=== PATIENT | female | born 1955 | race Caucasian/White ===

== ENCOUNTER 2018-02-23 08:00 | Inpatient (IN) | payer OTHER ==
[2018-02-14 12:11] VITALS: BMI 34.7
[2018-03-04] MEDS ORDERED: VANCOMYCIN 1,000 MG VIAL (RESTRICTED TO ID ONLY) ONE (14:22)
[2018-03-04] MEDS ORDERED: ROPIVACAINE HCL 0.5% 30ML VIAL ONE (14:29)
[2018-03-04] MEDS ORDERED: MIDAZOLAM HCL 2 MG/2 ML SINGLE DOSE VIAL ONE (14:29)
[2018-03-04] MEDS ORDERED: DEXAMETHASONE SOD PHOSPHATE/PF 10 MG/ML SDV ONE (14:30)
[2018-03-04] MEDS ORDERED: EPINEPHrine/PF 1 MG/1 ML (1:1,000) AMPULE ONE (14:31)
[2018-03-04] MEDS ORDERED: BUPIVACAINE 0.75% IN DEXTROSE/PF 2ML AMPULE NR ONE (15:24)
[2018-03-04] MEDS ORDERED: BUPIVACAINE HCL/PF 0.5% (5MG/ML) 10 ML VIAL ONE (15:25)
[2018-03-04] MEDS ORDERED: ceFAZolin SODIUM 1 GM VIAL ONE (15:49)
[2018-03-04] MEDS ORDERED: ePHEDrine SULFATE 50 MG/1 ML AMPULE ONE (16:18)
[2018-03-04] MEDS ORDERED: PROPOFOL 20 ML ONE (16:48)
--- NOTE | 2018-03-04 17:30 | PN ---
Progress Note (short form) - Note Progress Note: 62F s/p right MODESTA POD #0. -Pain control. -DVT PPx: - Chemical: ASA 81mg PO BID x 6 weeks. - Mechanical: MACHO's, SCD's. -Incentive spirometry. -PT/OT/Rehab, OOB. -WBAT RLE. -Post-op Ancef x 2 doses. -Right hip precautions. -Hip abduction pillow. -f/u post-op trial of void. -f/u AM labs. -Care per medical hospitalist team. -Discharge planning: f/u Wednesday03/11/2018 at [facility] [place] office; call for appointment; . -Will follow. Ck Ferrer MD (Orthopaedic Surgery).
[2018-03-04] MEDS ORDERED: MAG HYDROX/AL HYDROX/SIMETH 30 ML UNIT-DOSE CUP PO PRN (17:35)
[2018-03-04] MEDS ORDERED: ONDANSETRON 4 MG/2 ML VIAL IVPUSH PRN (17:35)
[2018-03-04] MEDS ORDERED: MAGNESIUM HYDROX 2400MG/30ML ORAL SUSPENSION 30 ML CUP PO PRN (17:35)
--- NOTE | 2018-03-04 17:35 | OP ---
Operative Note - Note: Operative Date: 03/04/18 Pre-Operative Diagnosis: Right hip DJD Operation: Right total hip replacement Implants: Olman. Cup - Tritanium 50mm, cluster. Poly - 28mm, neutral. Stem - Accolade II, #2, 127 deg NSA (high offset). Head - Biolox/Delta Ceramic; 28mm diameter, -2.7mm length Post-Operative Diagnosis: Same as Pre-op Surgeon: Ck Ferrer Television Engineering Teacher: Javon Ferrer Anesthesiologist/CROWN POUNCER: Hitesh Bryant Anesthesia: Spinal Specimens Removed: Right femoral head Estimated Blood Loss (mls): 150 Fluid Volume Replaced (mls): 1,000 (Crystalloid) Operative Report Dictated: Yes
[2018-03-04] MEDS ORDERED: LACTATED RINGERS SOLUTION 1,000 ML IV SCH (17:45)
[2018-03-04] MEDS ORDERED: oxyCODONE HCL 5 MG TABLET PO PRN (17:55)
[2018-03-04] MEDS ORDERED: ACETAMINOPHEN 325 MG TABLET (FP) ONE (18:09)
[2018-03-04] MEDS ORDERED: ACETAMINOPHEN 325 MG TABLET (FP) PO ONE (18:22)
[2018-03-04] MEDS: SENNOSIDES/DOCUSATE COMBO (SENNA PLUS) TABLET (UD) PO SCH (21:52)
[2018-03-04] MEDS: oxyCODONE HCL 10 MG SUSTAINED ACTING TABLET PO SCH (21:52)
[2018-03-04] MEDS: ASPIRIN COATED 81 MG TABLET.EC PO SCH (21:53)
[2018-03-04] MEDS ORDERED: HYDROmorphone *PCA* 10MG/50ML DISP.SYRIN PCA SCH ×2 (22:30→22:45)
[2018-03-04] MEDS ORDERED: KETOROLAC TROMETHAMINE 15 MG/ML VIAL IVPUSH PRN (22:33)
[2018-03-04] MEDS ORDERED: HYDROmorphone HCL CARPU-JECT 2 MG/1 ML DISP.SYRIN SQ ONE (22:45)
[2018-03-04] MEDS: CEFAZOLIN 1 GM/D5W 1 GM/50 ML BAG IVPB SCH (22:46)
[2018-03-05] MEDS: ACETAMINOPHEN 325 MG TABLET (FP) PO SCH ×4 (00:13→18:13)
[2018-03-05] MEDS: CEFAZOLIN 1 GM/D5W 1 GM/50 ML BAG IVPB SCH (07:13)
[2018-03-05 09:54] LABS: ANION GAP 9 MMOL/L (8-16); BLOOD UREA NITROGEN 15 mg/dl (7-18); CALCIUM 9.2 mg/dl (8.4-10.2); CHLORIDE 102 mmol/L (98-107); CO2 27 mmol/L (22-28); CREATININE 0.7 mg/dl (0.6-1.3); GLUCOSE,RANDOM 163 mg/dl (74-106); POTASSIUM 4.9 mmol/L (3.5-5.1); SODIUM 138 mmol/L (136-145)
[2018-03-05 10:08] LABS: HEMOGLOBIN 11.7 GM/dl (10.7-15.3); MCH 33.3 pg (25.7-33.7); MCHC 33.4 g/dl (32.0-36.0); MEAN CELL VOLUME 99.8 fl (80-96); MEAN PLT VOLUME 9.8 fl (7.5-11.1); PLATELET COUNT 282 K/MM3 (134-434); RBC 3.51 M/mm3 (3.60-5.2)
[2018-03-05] MEDS: PANTOPRAZOLE 40 MG TABLET (FP) PO SCH (10:47)
[2018-03-05] MEDS: ASPIRIN COATED 81 MG TABLET.EC PO SCH ×2 (10:47→21:44)
[2018-03-05] MEDS: oxyCODONE HCL 10 MG SUSTAINED ACTING TABLET PO SCH ×2 (10:48→21:44)
[2018-03-05] MEDS: SENNOSIDES/DOCUSATE COMBO (SENNA PLUS) TABLET (UD) PO SCH ×2 (10:48→21:43)
--- NOTE | 2018-03-05 21:30 | CONSULT ---
Consultation: REQUESTING PROVIDER: Dr. Ck Ferrer CONSULT REQUEST: We have been asked to medically evaluate this patient for ( Medical Management). HISTORY OF PRESENT ILLNESS: This is a 62 y/o woman with a past medical history of Asthma, R- Hip DJD. Patient is s/p R- Total Hip Replacement POD #1, Dr. Ferrer, spinal anesthesia. Patient reports having soreness to surgical site, is on BAKERY WORKER CONVEYOR LINE pump. Patient reports ambulating with assistance. Patient reports eating, drinking, voiding, + flatulence, no BM. She denies parasthesias, fever, chills, cough, SOB, dizziness , CP, palpitations, AP, N/V, dysuria. REVIEW OF SYSTEMS: CONSTITUTIONAL: Absent: fever, chills, diaphoresis, generalized weakness, malaise, loss of appetite, weight change HEENT: Absent: rhinorrhea, nasal congestion, throat pain, throat swelling, difficulty swallowing, mouth swelling, ear pain, eye pain, visual changes CARDIOVASCULAR: Absent: chest pain, syncope, palpitations, irregular heart rate, lightheadedness , peripheral edema RESPIRATORY: Absent: cough, shortness of breath, dyspnea with exertion, orthopnea, wheezing, stridor, hemoptysis GASTROINTESTINAL: Absent: abdominal pain, abdominal distension, nausea, vomiting, diarrhea, constipation, melena, hematochezia GENITOURINARY: Absent: dysuria, frequency, urgency, hesitancy, hematuria, flank pain, genital pain MUSCULOSKELETAL: right hip soreness Absent: myalgia, arthralgia, joint swelling, back pain, neck pain SKIN: Absent: rash, itching, pallor HEMATOLOGIC/IMMUNOLOGIC: Absent: easy bleeding, easy bruising, lymphadenopathy, frequent infections ENDOCRINE: Absent: unexplained weight gain, unexplained weight loss, heat intolerance, cold intolerance NEUROLOGIC: Absent: headache, focal weakness or paresthesias, dizziness, unsteady gait, seizure, mental status changes, bladder or bowel incontinence PSYCHIATRIC: Absent: anxiety, depression, suicidal or homicidal ideation, hallucinations. PHYSICAL EXAMINATION Vital Signs - 24 hr 03/04/18 03/04/18 03/04/18 21:37 22:16 23:09 Temperature 97.6 F Pulse Rate 90 89 Respiratory 19 16 Rate Blood Pressure 143/57 L 121/60 O2 Sat by Pulse 100 Oximetry (%) 03/04/18 03/05/18 03/05/18 23:39 00:09 00:39 Temperature Pulse Rate 79 88 88 Respiratory 16 16 16 Rate Blood Pressure 128/69 127/62 127/62 O2 Sat by Pulse Oximetry (%) 03/05/18 03/05/18 03/05/18 01:09 03:09 05:00 Temperature 98.0 F Pulse Rate 74 88 74 Respiratory 16 19 19 Rate Blood Pressure 128/71 126/78 132/67 O2 Sat by Pulse Oximetry (%) 03/05/18 03/05/18 03/05/18 07:29 08:17 10:00 Temperature 97.7 F Pulse Rate 96 H Respiratory 18 Rate Blood Pressure 135/55 L O2 Sat by Pulse 100 100 99 Oximetry (%) 03/05/18 03/05/18 03/05/18 14:00 18:00 20:28 Temperature 97.6 F 98.2 F Pulse Rate 84 75 Respiratory 18 18 Rate Blood Pressure 135/58 L 125/56 L O2 Sat by Pulse 98 95 95 Oximetry (%) GENERAL: Awake, alert, and fully oriented, in no acute distress. HEAD: Normal with no signs of trauma. EYES: Pupils equal, round and reactive to light, extraocular movements intact, sclera anicteric, conjunctiva clear. No lid lag. EARS, NOSE, THROAT: Ears normal, nares patent, oropharynx clear without exudates. Moist mucous membranes. NECK: Normal range of motion, supple without lymphadenopathy, JVD, or masses. LUNGS: Breath sounds equal, clear to auscultation bilaterally. No wheezes, and no crackles. No accessory muscle use. HEART: Regular rate and rhythm, normal S1 and S2 without murmur, rub or gallop. ABDOMEN: Obese, soft, nontender, not distended, normoactive bowel sounds, no guarding, no rebound, no masses. No hepatomegaly or splenomegaly. MUSCULOSKELETAL: Normal range of motion at RUE, LUE, LLE joints. No bony deformities. No CVA tenderness. LROM RLE, Right hip tenderness UPPER EXTREMITIES: 2+ pulses, warm, well-perfused. No cyanosis. No clubbing. Cap refill <2 seconds. No peripheral edema. LOWER EXTREMITIES: 2+ pulses, warm, well-perfused. No calf tenderness. No peripheral edema. Surgical bandages C/D/I, surgical wound not visualized , Abductor Pillow, SCDs noted NEUROLOGICAL: Cranial nerves II-XII intact. Normal speech. Gait not observed. PSYCHIATRIC: Cooperative. Good eye contact. Appropriate mood and affect. SKIN: Warm, dry, normal turgor, no rashes or lesions noted. Laboratory Results - last 24 hr 03/05/18 03/05/18 07:50 07:50 WBC 15.0 H RBC 3.51 L Hgb 11.7 Hct 35.0 MCV 99.8 H MCH 33.3 MCHC 33.4 RDW 13.0 Plt Count 282 MPV 9.8 Sodium 138 Potassium 4.9 Chloride 102 Carbon Dioxide 27 Anion Gap 9 BUN 15 Creatinine 0.7 Creat Clearance w eGFR > 60 Random Glucose 163 H Calcium 9.2 Active Medications Generic Name Dose Route Start Last Admin Trade Name Freq PRN Reason Stop Dose Admin Acetaminophen 650 mg 03/04/18 18:00 03/05/18 18:13 Tylenol - PO 03/07/18 17:59 650 mg Q6H ERI Administration Al Hydroxide/Mg Hydroxide 30 ml 03/04/18 17:35 Mylanta Oral Suspension - PO Q4H PRN DYSPEPSIA Aspirin 81 mg 03/04/18 22:00 03/05/18 10:47 Ecotrin - PO 81 mg BID ERI Administration Hydromorphone HCl 10 mg 03/04/18 22:45 03/04/18 23:09 Dilaudid Contact Officer - BAKERY WORKER CONVEYOR LINE 10 mg BAKERY WORKER CONVEYOR LINE ERI Administration Protocol Ketorolac Tromethamine 15 mg 03/04/18 22:33 Toradol Injection - IVPUSH Q6H PRN PAIN LEVEL 6-10 Magnesium Hydroxide 30 ml 03/04/18 17:35 Milk Of Magnesia - PO PRN PRN CONSTIPATION Ondansetron HCl 4 mg 03/04/18 17:35 03/05/18 07:34 Zofran Injection IVPUSH 4 mg Q6H PRN Administration NAUSEA Oxycodone HCl 5 mg 03/04/18 17:55 03/04/18 20:58 Roxicodone - PO 5 mg Q3H PRN Administration PAIN LEVEL 1-5 Oxycodone HCl 10 mg 03/04/18 17:55 Roxicodone - PO Q3H PRN PAIN LEVEL 6-10 Oxycodone HCl 10 mg 03/04/18 22:00 03/05/18 10:48 Oxycontin - PO 03/07/18 17:58 10 mg BID ERI Administration Pantoprazole Sodium 40 mg 03/05/18 10:00 03/05/18 10:47 Protonix - PO 40 mg DAILY ERI Administration Senna/Docusate Sodium 1 tablet 03/04/18 22:00 03/05/18 10:48 Pericolace - PO 1 tablet BID ERI Administration ASSESSMENT/PLAN: 62 y/o woman with a PMH of Asthma, Right Hip DJD. Admitted for Right Total Hip Replacement. 1. Musculoskeletal: s/p Right Total Hip Replacement, POD #1 - Continue pain medication as needed - Physical Therapy as per the Ortho Team - Use Incentive Spirometer while awake - Monitor CBC, BMP, vitals 2. Pulmonary: Asthma - stable - no acute flare - Albuterol MDI prn FEN - PO fluids as tolerated - Replete lytes prn - Regular Diet DVT/GI ppx - Asa as per Orthopedist - Protonix Dispo: We will continue to follow the patient. Thank you for this consultative opportunity. Problem List - Problems (1) Status post right hip replacement Code(s): Z96.641 - PRESENCE OF RIGHT ARTIFICIAL HIP JOINT (2) Asthma Code(s): J45.909 - UNSPECIFIED ASTHMA, UNCOMPLICATED (3) DVT prophylaxis Code(s): WYW5464 - Visit type - Emergency Visit Emergency Visit: No - New Patient This patient is new to me today: Yes Date on this admission: 03/05/18 - Critical Care Critical Care patient: No
[2018-03-06] MEDS: ACETAMINOPHEN 325 MG TABLET (FP) PO SCH ×3 (00:46→11:37)
[2018-03-06] MEDS: ASPIRIN COATED 81 MG TABLET.EC PO SCH (09:07)
[2018-03-06] MEDS: PANTOPRAZOLE 40 MG TABLET (FP) PO SCH (09:07)
[2018-03-06] MEDS: SENNOSIDES/DOCUSATE COMBO (SENNA PLUS) TABLET (UD) PO SCH (09:07)
[2018-03-06] MEDS: oxyCODONE HCL 5 MG TABLET PO PRN ×2 (09:08→14:14)
[2018-03-06] MEDS: oxyCODONE HCL 10 MG SUSTAINED ACTING TABLET PO SCH (09:09)
[2018-03-06 09:39] LABS: HEMATOCRIT 33.8 % (32.4-45.2); HEMOGLOBIN 10.9 GM/dl (10.7-15.3); MCH 32.5 pg (25.7-33.7); MCHC 32.3 g/dl (32.0-36.0); MEAN CELL VOLUME 100.7 fl (80-96); MEAN PLT VOLUME 9.8 fl (7.5-11.1); PLATELET COUNT 284 K/MM3 (134-434); RBC 3.36 M/mm3 (3.60-5.2); RDW 12.8 % (11.6-15.6); WHITE BLOOD COUNT 14.6 K/mm3 (4.0-10.8)
[2018-03-06 13:00] LABS: PH,URINE 5.5 (4.5-8); URINE BILIRUBIN Negative (NEGATIVE); URINE COLOR Yellow; URINE GLUCOSE (UA) Negative (NEGATIVE); URINE KETONE Negative (NEGATIVE); URINE NITRITE Negative (NEGATIVE); URINE PROTEIN Negative (NEGATIVE); URINE UROBILINOGEN 0.2 (0.2-1.0)
[2018-03-06 13:01] LABS: URINE APPEARANCE HAZY; URINE LEUK ESTERASE 1+ (NEGATIVE)
[2018-03-06 13:03] LABS: URINE RBC 0-2 /hpf (0-3)
[2018-03-06 13:04] LABS: EPI CELLS MODERATE /HPF; URINE BACTERIA FEW /hpf (NEGATIVE)
--- NOTE | 2018-03-06 13:13 | DS ---
Physical Exam: SUBJECTIVE: Patient seen and examined. Pt reports feeling better, Rt hip pain well controlled, denies cp, sob, palpitations, abdominal pain pain N/V/D, fever , chills or urinary symptoms. OBJECTIVE: Vital Signs Period Temp Pulse Resp BP Sys/Nunes Pulse Ox Last 24 Hr 97.6 F-98.3 F 73-91 18-18 120-151/50-61 95-98 PHYSICAL EXAM GENERAL: The patient is awake, alert, and fully oriented, in no acute distress. HEAD: Normal with no signs of trauma. EYES: PERRL, extraocular movements intact, sclera anicteric, conjunctiva clear. ENT: Ears normal, nares patent, oropharynx clear without exudates, moist mucous membranes. NECK: Trachea midline, full range of motion, supple. LUNGS: Breath sounds equal, clear to auscultation bilaterally, no wheezes, no crackles, no accessory muscle use. HEART: Regular rate and rhythm, S1, S2 without murmur, rub or gallop. ABDOMEN: Soft, nontender, nondistended, normoactive bowel sounds, no guarding, no rebound, no hepatosplenomegaly, no masses. EXTREMITIES: 2+ pulses, warm, well-perfused, no edema. Rt hip dsg dry and intact NEUROLOGICAL: Cranial nerves II through XII grossly intact. Normal speech, gait not observed. PSYCH: Normal mood, normal affect. SKIN: Warm, dry, normal turgor, no rashes or lesions noted. LABS Laboratory Results - last 24 hr 03/06/18 03/06/18 07:00 12:37 WBC 14.6 H RBC 3.36 L Hgb 10.9 Hct 33.8 MCV 100.7 H MCH 32.5 MCHC 32.3 RDW 12.8 Plt Count 284 MPV 9.8 Urine Color Yellow Urine Appearance Hazy Urine pH 5.5 Ur Specific Rainier 1.020 Urine Protein Negative Urine Glucose (UA) Negative Urine Ketones Negative Urine Blood Negative Urine Nitrite Negative Urine Bilirubin Negative Urine Urobilinogen 0.2 Ur Leukocyte Esterase 1+ H Urine RBC 0-2 Urine WBC 10-20 Ur Epithelial Cells Moderate Urine Bacteria Few HOSPITAL COURSE: Date of Admission:03/04/18 Date of Discharge: 03/06/18 This is a 62 y/o woman with a past medical history of Asthma, R- Hip DJD. pt underwent Rt hip replacement by Dr. Ferrer under spinal anesthesia. PT eval done , recommend home PT. Lab revealed wbc 15>14,afebrile, UA mild pyuria, asymptomatic, cxr reviewed showed no acute lung pathology. Pt remains clinically stable. recommend out pt followup on [facility] with Dr. Ferrer on Wednesday or PMD .Encouraged to use Incentive spirometry,Right hip precautions and Use Hip abduction pillow. Hx of Asthma,stable - Minutes to complete discharge: 40 Discharge Summary Reason For Visit: UNILATERAL OA RIGHT HIP Current Active Problems Asthma (Acute) DVT prophylaxis (Acute) Status post right hip replacement (Acute) Condition: Stable - Instructions Diet, Activity, Other Instructions: Encouraged to use Incentive spirometry. Right hip precautions. Use Hip abduction pillow. Followup with Orthopaedics on Wednesday03/11/2018 at [place] office; call for appointment; . Referrals: Miguel Angel Allen [Non Staff, Medical] - (1-2 weeks) Ck Ferrer MD [Staff Physician] - 03/11/18 Disposition: HOME - Home Medications Comprehensive Discharge Medication List: Ambulatory Orders Cyanocobalamin [Vitamin B12 -] 1,000 mcg PO DAILY 02/14/18 Naproxen/Esomeprazole Mag [Vimovo Dr 375-20 mg Tablet] 1 each PO ASDIR PRN 02/14 Acetaminophen [Tylenol .Regular Strength -] 650 mg PO Q6H tablet 03/06/18 Aspirin Coated [Ecotrin -] 81 mg PO BID tablet.ec 03/06/18 Sennosides/Docusate Sodium [Pericolace -] 1 tablet PO BID tablet 03/06/18 oxyCODONE HCL [Roxicodone -] 5 mg PO Q4H PRN #15 tablet MDD 6 03/06/18 This patient is new to me today: Yes Date on this admission: 03/10/18 Emergency Visit: No Critical Care patient: No - Discharge Referral Referred to [facility] Med P.C.: No
[2018-03-06 14:14] VITALS: BP 133/57; PULSE 94; TEMP 98.5
--- NOTE | 2018-03-07 09:26 | OP ---
Date of Operation: 03/04/2018 Pre-Operative Diagnosis: Right hip osteoarthritis. Post-Operative Diagnosis: Right hip osteoarthritis. Procedure Performed: Right total hip replacement via a modified anterolateral approach. Surgeon: Ck Ferrer M.D. Adaptive Physical Education Teacher: Javon Ferrer M.D. Anesthesia: Spinal, sedation. Position: Supine Incision: Lateral Specimens Removed: Right femoral head. Estimated Blood Loss: 150 mL. Intravenous Fluid: 1L crystalloid. Specimens: None. Drains: None. Complications: None. Urine Output: None. Bacteriology: None. Transfusions: None. Closure: No. 1 and 2-0 Vicryl, 3-0 Biosyn absorbable sutures. Indications: The patient was indicated for a right total hip replacement in order to facilitate improved motion and mobilization, and to prevent the complications associated with a sedentary lifestyle. The patient was identified in the holding area by her armband. A long discussion was held with the patient regarding the risks, benefits and alternatives of the above named procedure. Risks include but are not limited to : pain, bleeding, infection, damage to surrounding structures (including nerves , blood vessels, skin, ligaments, tendons and bone), wound complications, failure of hardware/implants/reduction, need for further surgery, blood clots, myocardial infarction, pulmonary embolism, cerebrovascular insult, anaesthesia complications, compartment syndrome, limb loss, limp, loss of function, and . Benefits as mentioned above. Alternatives include no surgery. All questions were answered. The patient understood and agreed to the procedure. Informed consent was obtained, witnessed and verified. The patients correct operative limb - that is the right lower extremity - was marked, and the patient was taken to the operating room after being seen by the anesthesia and nursing staff. Procedure: The patient was brought into the operating room, placed on the OR table and secured with a safety strap. Consent and the operative site were again verified with the patient and nursing and anaesthesia staff. Anaesthesia was then administered without complication. This included administration of 2g IV Ancef, 1g IV Vancomycin, and 1g IV TXA. The patient was placed in the supine position with the greater trochanter lying at the edge of the table, thus freeing the muscles of the buttock from the table. All bony prominences were well padded. The non-operative limb was loosely secured to the operating table using a Kerlix bandage. With respect to the pelvis, the limb lengths were accurately compared. There was no a limb length discrepancy noted. The operative limb was prepped in standard sterile fashion using Betadine prep & scrub, wiped off with alcohol, and DuraPrep applied. The operative limb was then free draped. With the patient in the supine position, a modified lateral (Hardinge) approach was utilized to access the hip. The skin incision was centered over the greater trochanter proximally, at the level of the anterior-superior iliac spine, and extended distally, ending 3-5cm distal to the vastus ridge, along the anterior border of the femur. Subcutaneous dissection was carried down to the level of the iliotibial band which was split longitudinally in line with its fibers. The gluteus anoop muscle was split proximally in line with its fibers to the level of the apex of the incision. A standard Charnley retractor was then placed subfascially to expose the deep structures. Using electrocautery, a hockey stick incision was utilized to split the anterior fibers of gluteus medius and gain access to the darnell-lateral femur. This ended parallel to the femur at the entry point to the Cash-Tran window. Electrocautery was then used to expose the anterior neck of the femur. The supero-lateral and infero-medial hip capsule was then incised and anterior radial capsular cuts were made as needed. An anterior acetabular retractor was then placed to facilitate exposure. The operative limb was adducted across the midline and the hip was externally rotated with the knee flexed using the tibia as a lever to facilitate an anterolateral hip dislocation. A femoral neck cut was made approximately 1cm proximal to the lesser trochanter using an oscillating saw. The femoral head was delivered out of the operative field. The operative limb was then brought back onto the table and the ankles were crossed. Posterior and inferior acetabular retractors were then placed. The acetabulum was then reamed in sequentially increasing diameter using sharp domed basket reamers. A final size 49mm reamer was used, ensuring concentric acetabular bone bed preparation. A Rudyard Tritanium 50mm diameter cup was then impacted, achieving solid press fit in the desired orientation based on pelvic alignment. We elected not to supplement cup fixation with screws. A 28mm neutral highly cross-linked UHMWPE liner was then implanted. All retractors were removed. The operative limb was adducted and externally rotated to allow visualization of the proximal femur. A sharp Hohmann retractor was placed posterior to the tip of the greater trochanter to protect the hip abductor. A box osteotome was used to begin the femoral preparation. A sharp, end cutting reamer was used to manually gain entry to the femoral canal. Next, broaches were delivered via mallet strikes to prepare the proximal femoral bone bed for final implantation. The tibia was used as a goniometer with which we could accurately dial in our desired femoral anteversion. Modular femoral stem, neck, and head trial components were assembled and the hip was reduced. In the supine position, the true limb lengths were matched. The hip was then reduced and stability was ensured in all physiologic positions of compromise. This included flexion to 90 degrees with adduction and internal rotation. This also included extension and external rotation. At no point did the trunion impinge upon the cup. A Rudyard Accolade II, Size #2, high offset stem (127 degree neck-shaft angle) was then implanted using mallet strikes until achieving solid press-fit. A Biolox/Delta Ceramic head Size 28mm diameter, Length -2.7mm head was then impacted using a protective head impacter and mallet strikes. As before, the hip was reduced and stability was ensured in all physiologic positions of compromise. Again, in the supine position, the true limb lengths were matched. The operative limb lay in physiologic 15 degrees of external rotation. The wounds were copiously irrigated throughout the case and hemostatis was assured. Meticulous technique was implemented to avoid any implants coming into contact with free edges of the wound & skin. No drain was utilized. The split gluteus medius muscle fibers were reattached using #1 vicryl sutures. The iliotibial band, gluteus anoop fascia, and subcutaneous tissues were closed using #1 and 2-0 vicryl sutures. The skin was closed using skin yanet. A sterile compressive dressing was applied. A hip abduction pillow was placed between the legs. The patient was transferred to a hospital bed. A post-operative x-ray was taken with the patient on the hospital bed. This showed the hip to be well reduced with all implants in place and no evidence of josias-prosthetic fracture or retained foreign body. The patient was then transferred to the recovery room in stable condition, as per the anesthesia team, having tolerated the procedure well. MD MICHELE Luna/[id number] MTDD
--- NOTE | 2018-03-09 18:04 | PATH ---
Surgical Pathology Report Patient Name: KAYODE DICKENS Med. Rec. #: [id number] /Age/Gender: 1955 (Age: 62) / F Account: [id number] Location: [facility] MED-SURG Taken: 03/05/2018 Received: 03/05/2018 Reported: 03/09/2018 Physicians: Ck Ferrer M.D. Specimen(s) Received HEAD OF RIGHT FEMUR Clinical History Right hip osteoarthritis Final Diagnosis BONE, FEMORAL HEAD, RIGHT, TOTAL HIP REPLACEMENT: BONE WITH DEGENERATIVE JOINT DISEASE AND REACTIVE SYNOVIUM. Electronically Signed Tisha Schultz M.D. Gross Description Received in formalin labeled "right femoral head," is a 5.0 x 4.0 x 3.8 cm femoral head. There are areas of eburnation present. The remaining articular surfaces are aguilar-yellow and focally granular. The underlying trabecular bone is yellow and hard. Repair Cameraman sections are submitted in one cassette, following decalcification. MARY/03/07/2018 sarah/03/07/2018
== END 2018-03-06 14:30 | disposition home or self-care (01) | DRG 470 ==
LOC: FM/S 03-04 11:55
PROVIDERS: ADMIT Orthopaedic Surgery Adult Reconstructive Orthopaedic Surgery; ATTEND Orthopaedic Surgery Adult Reconstructive Orthopaedic Surgery
PROC: 0SR904Z Replacement of Right Hip Joint with Ceramic on Polyethylene Synthetic Substitute, Open Approach (ICD-10-PCS; principal; 2018-03-04 16:28)
DX: M16.11 Unilateral primary osteoarthritis, right hip (principal); J45.909 Unspecified asthma, uncomplicated
CPT/HCPCS: 36415; 71045-TC-FY; 73523-TC-FY; 80048; 81003; 81015; 85027; 88305-TC; 88311-TC; 94760; 97116-GP; 97161-GP